=== PATIENT | female | born 1955 | race Caucasian/White ===

== ENCOUNTER 2016-08-20 10:19 | Day surgery (SDC) | payer OTHER ==
[~2016-08-20] VITALS: Ht 170.2 cm; Wt 59.0 kg
[~2016-08-20 10:19] MED LIST: ALPR0.254 PO; CITA20TA PO; RANI150T11 PO; Sodium Chloride LOK Flush 10 mL Syringe IV PRN; [UNRECOGNIZED DRUG - CODE] PO; fentaNYL-PF 50 mCg/mL 2 mL Inj IVPUSH PRN
[2016-08-20 10:39] VITALS: BP 122/75; PULSE 69; RESP 16; O2SAT 100
[2016-08-20] MEDS: 0.9% Sodium Chloride 1,000 ML IV SCH ×3 (11:16→11:51)
[2016-08-20 11:57] VITALS: BP 105/61; PULSE 76; RESP 14; O2SAT 99
[2016-08-20 12:14] VITALS: BP 102/64; PULSE 64; RESP 14; O2SAT 100
--- NOTE | 2016-08-20 15:11 | ENDO ---
[address] [address] ENDOSCOPY PROCEDURE PATIENT: ANTONI WOMACK I : 1955 MR#: [id number] ADMIT: 08/20/2016 JOB ID: [id number] DATE: 08/20/2016 PRIMARY PROVIDER: Antonia Hook M.D. PROCEDURE: Colonoscopy. INDICATIONS: A 60-year-old female with a history of adenomatous colon polyp returning for surveillance. EQUIPMENT: PCF H 180 AL. SEDATION: 1. 6 mg Versed. 2. 125 mcg fentanyl. COMPLICATIONS: None identified. BOWEL PREPARATION: Fair, adequate examination. PROCEDURAL INFORMATION: After the risks and benefits were explained, written and verbal informed consent was obtained. The patient was brought into the endoscopy suite and placed into the left lateral decubitus position. Sedation was achieved as above. Digital rectal examination accomplished. Mild internal hemorrhoids noted. The scope was introduced into the rectum and advanced to the cecum as identified by the appendiceal orifice and ileocecal valve. The scope was slowly withdrawn to carefully examine the mucosa for any defects or lesions. Retroflexed views were avoided in the rectum. Multiple direct views were made through the dentate line for exclusion of pathology. The colon was decompressed. The scope removed from the patient who tolerated the procedure well. FINDINGS: No significant polyps, mass lesions or inflammatory features identified throughout. ENDOSCOPIC DIAGNOSIS: 1. Mild internal hemorrhoids. 2. Otherwise visually unremarkable colonoscopy to cecum. RECOMMENDATIONS: 1. Repeat colonoscopy five years. 2. The patient reported some irritable bowel type symptoms with a tendency towards constipation that can alternate with loose bowel movements. I suspect she may have an element of intermittent obstipation and I have encouraged her to be much more consistent with her fiber consumption. She has tried psyllium in the last month or two and actually noticed a significant improvement but has not been consistently taking it.
== END 2016-08-20 23:59 | disposition home or self-care (01) ==
LOC: END 10:19
PROVIDERS: ATTEND Internal Medicine Gastroenterology
DX: Z12.11 Encounter for screening for malignant neoplasm of colon (principal); K64.8 Other hemorrhoids; Z86.010 Personal history of colon polyps; K58.9 Irritable bowel syndrome, unspecified; K21.9 Gastro-esophageal reflux disease without esophagitis; F41.8 Other specified anxiety disorders; I73.00 Raynaud's syndrome without gangrene
CPT/HCPCS: 99153; G0105; G0500; J2250; J3010; J7030